=== PATIENT | female | born 1970 | race Caucasian/White ===

== ENCOUNTER 2021-01-23 13:48 | Observation (INO) ==
[2021-01-23] MEDS ORDERED: Isovue-370 500 ML BOTTLE IVP ONE (14:03)
[2021-01-23] MEDS ORDERED: 0.9 % Sodium Chloride 500 ML IVC ONE (14:09)
[2021-01-23 14:28] LABS: Basophils % 0.3 %; Eosinophils # 0.1 K/mcL (0.0-0.6); Eosinophils % 0.7 %; Hematocrit 46.3 % (35.3-44.9); Immature Granulocytes % 0.3 % (0-4); Lymphocytes # 1.3 K/mcL (0.6-4.6); Lymphocytes % 14.5 %; Mean Corpuscular HGB Conc 32.4 g/dL (31.6-35.5); Mean Corpuscular Hemoglobin 30.5 pg (28.0-33.3); Mean Corpuscular Volume 94.3 fL (83.0-100.0); Mean Platelet Volume 9.4 fL (9.4-12.4); Monocytes # 0.4 K/mcL (0.0-1.3); Monocytes % 4.8 %; Platelet Count 331 K/mcL (140-400); Red Blood Count 4.91 M/mcL (3.82-4.97); Red Cell Distribution Width 13.1 % (11.5-14.5); Segmented Neutrophils % 79.4 %; White Blood Count 8.8 K/mcL (4.3-11.1)
[2021-01-23 14:46] LABS: BUN/Creatinine Ratio 10 (6-26); Blood Urea Nitrogen 9 mg/dL (6-20); Calcium 10.5 mg/dL (8.6-10.3); Carbon Dioxide 23 mEq/L (23-29); Chloride 109 mEq/L (98-107); Glucose 107 mg/dL (70-105); Osmolality,Calculated 289 (280-300); Potassium 3.7 mEq/L (3.5-5.1); Sodium 140 mEq/L (136-145); eGFR For African Americans > 60 (> 60); eGFR For Non-African Americans > 60 (> 60)
[2021-01-23 14:47] LABS: Troponin I < 0.03 ng/mL (< 0.04)
[2021-01-23 14:55] LABS: Amorphous Sediment,Urine Few per hpf (None-Few); Bilirubin,Urine Negative (Negative); Blood,Urine Negative (Negative); Budding Yeast,Urine Few per hpf (None Seen); Clarity,Urine Turbid (Clear); Color,Urine Light-Yellow (Yellow); Glucose,Urine (UA) Normal (Normal); Ketones,Urine 20 mg/dL (Negative); Leukocyte Esterase,Urine Moderate (Negative); Mucus,Urine Few per lpf (None-Few); Nitrite,Urine Negative (Negative); PH,Urine 6.5 pH Units (5.0-8.0); Protein,Urine Trace mg/dL (Neg-Trace); RBC,Urine 0-3 per hpf (0-3); Specific Gravity,Urine 1.019 (1.010-1.025); Squamous Epithelial Cell,Urine Few per hpf (None-Few); Urobilinogen,Urine Normal (Normal)
[2021-01-23] MEDS ORDERED: Fluconazole 150 MG TABLET PO ONE ×2 (15:23→15:36)
[2021-01-23] MEDS ORDERED: *HR* Heparin 5,000 UNIT/ML VIAL IVP ONE (15:23)
[2021-01-23] MEDS ORDERED: *HR* Heparin 5,000 UNIT/ML VIAL IVP PRN ×2 (15:23)
[2021-01-23] MEDS ORDERED: Heparin 25,000UNIT/250ML 1/2NS 25,000 UNIT/250 ML IV.SOLN IVC SCH (15:30)
[2021-01-23 16:01] LABS: Hematocrit 43.1 % (35.3-44.9); Hemoglobin 13.8 g/dL (11.5-15.4); Mean Corpuscular Hemoglobin 30.1 pg (28.0-33.3); Mean Corpuscular Volume 93.9 fL (83.0-100.0); Mean Platelet Volume 9.4 fL (9.4-12.4); Platelet Count 330 K/mcL (140-400); Red Blood Count 4.59 M/mcL (3.82-4.97); White Blood Count 8.2 K/mcL (4.3-11.1)
[2021-01-23 16:13] LABS: Heparin anti-factor XA UFH < 0.04 IU/mL (0.30-0.70)
[2021-01-23 16:14] LABS: INR 1.1; Prothrombin Time 12.5 Seconds (9.4-12.1)
[2021-01-23] MEDS ORDERED: Naloxone 0.4 MG/ML INJ IVP PRN (16:28)
[2021-01-23] MEDS ORDERED: Ondansetron 4 MG/2 ML VIAL IVP PRN (16:28)
[2021-01-23] MEDS ORDERED: Acetaminophen 325 MG TABLET PO PRN (16:33)
[2021-01-23] MEDS ORDERED: Perflutren Lipid Microsphere 1.3 ML in 0.9 % Sodium Chloride 8.7 ML IVP PRN (17:11)
[2021-01-23] MEDS ORDERED: Ringers Solution, Lactated 1,000 ML IVC SCH (17:15)
[2021-01-23] MEDS ORDERED: Warfarin perPT PO SCH (18:00)
[2021-01-23] MEDS ORDERED: *HR* Warfarin 5 MG TABLET PO ONE (18:00)
[2021-01-23] MEDS ORDERED: Melatonin 3 MG TABLET PO PRN (23:05)
[2021-01-24] MEDS ORDERED: Acetaminophen 325 MG TABLET PO ONE (00:43)
[2021-01-24] MEDS ORDERED: Acetaminophen/Aspirin/Caffeine TABLET PO PRN (06:16)
[2021-01-24 06:24] LABS: Basophils % 0.4 %; Eosinophils # 0.1 K/mcL (0.0-0.6); Eosinophils % 1.9 %; Hematocrit 41.9 % (35.3-44.9); Hemoglobin 13.4 g/dL (11.5-15.4); Immature Granulocytes % 0.3 % (0-4); Lymphocytes # 1.9 K/mcL (0.6-4.6); Lymphocytes % 26.7 %; Mean Corpuscular Hemoglobin 30.2 pg (28.0-33.3); Mean Corpuscular Volume 94.6 fL (83.0-100.0); Mean Platelet Volume 9.7 fL (9.4-12.4); Monocytes # 0.6 K/mcL (0.0-1.3); Monocytes % 8.2 %; Neutrophils # 4.5 K/mcL (1.6-8.9); Platelet Count 303 K/mcL (140-400); Red Blood Count 4.43 M/mcL (3.82-4.97); Red Cell Distribution Width 13.2 % (11.5-14.5); Segmented Neutrophils % 62.5 %; White Blood Count 7.2 K/mcL (4.3-11.1)
[2021-01-24 06:34] LABS: Heparin anti-factor XA UFH 0.65 IU/mL (0.30-0.70)
[2021-01-24 06:35] LABS: INR 1.1; Prothrombin Time 12.9 Seconds (9.4-12.1)
[2021-01-24 06:40] LABS: BUN/Creatinine Ratio 14 (6-26); Blood Urea Nitrogen 12 mg/dL (6-20); Calcium 9.5 mg/dL (8.6-10.3); Carbon Dioxide 21 mEq/L (23-29); Chloride 110 mEq/L (98-107); Glucose 91 mg/dL (70-105); Magnesium 2.1 mg/dL (1.6-2.6); Osmolality,Calculated 285 (280-300); Phosphorous 3.1 mg/dL (2.7-4.5); Potassium 3.7 mEq/L (3.5-5.1); Sodium 138 mEq/L (136-145); eGFR For African Americans > 60 (> 60); eGFR For Non-African Americans > 60 (> 60)
[2021-01-24 06:55] LABS: Thyroid Stimulating Hormone 0.942 mcIU/mL (0.340-5.600)
[2021-01-24] MEDS ORDERED: *HR* Rivaroxaban 15 MG TABLET PO SCH (09:30)
[2021-01-24 10:08] VITALS: BP 130/76
[2021-01-24] MEDS ORDERED: Apixaban 5 MG TABLET PO SCH (21:00)
== END 2021-01-24 15:55 | disposition home or self-care (01) ==
LOC: 3ANU 13:48 → EMEROOARM 13:48 → 3ANU 17:40
PROVIDERS: ADMIT Internal Medicine; ATTEND Internal Medicine